=== PATIENT | male | born 1980 | race American Indian/Alaskan Native ===

== ENCOUNTER 2018-03-06 12:04 | Emergency (ER) | payer OTHER ==
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
[2018-03-06 16:55] VITALS: BP 124/70
== END 2018-03-06 16:53 | disposition home or self-care (01) ==
LOC: ED 12:04
DX: S39.012A Strain of muscle, fascia and tendon of lower back, initial encounter (principal); F17.200 Nicotine dependence, unspecified, uncomplicated; V49.09XA Driver injured in collision with other motor vehicles in nontraffic accident, initial encounter; Y93.89 Activity, other specified; Y99.8 Other external cause status; Y92.488 Other paved roadways as the place of occurrence of the external cause
CPT/HCPCS: 99282

== ENCOUNTER 2018-11-23 13:56 | Emergency (ER) | payer OTHER ==
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
[2018-11-23 14:36] VITALS: BP 126/73
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
[2018-11-23] MEDS ORDERED: IBUPROFEN PO ONE (16:25)
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
== END 2018-11-23 17:01 | disposition home or self-care (01) ==
LOC: ED 13:56
DX: S39.012A Strain of muscle, fascia and tendon of lower back, initial encounter (principal); S16.1XXA Strain of muscle, fascia and tendon at neck level, initial encounter; M79.10 Myalgia, unspecified site; F17.200 Nicotine dependence, unspecified, uncomplicated; V89.2XXA Person injured in unspecified motor-vehicle accident, traffic, initial encounter; Y93.89 Activity, other specified; Y92.488 Other paved roadways as the place of occurrence of the external cause; Y99.8 Other external cause status
CPT/HCPCS: 72040; 72100; 99283